=== PATIENT | male | born 1975 | race Caucasian/White ===

== ENCOUNTER 2018-12-28 23:30 | Emergency (ER) | payer BC, OTHER ==
[~2018-12-28] VITALS: Ht 185.4 cm; Wt 102.6 kg
[2018-12-28 23:36] VITALS: BP 122/73; PULSE 78; RESP 16; Ht 185.4 cm; Wt 102.6 kg
[2018-12-29] MEDS ORDERED: HYDR-4011 PO (00:11)
--- NOTE | 2018-12-29 00:12 | ERD ---
ER Documentation Chief Complaint Chief Complaint PT reports L groin pain increasing, pt has L inguinal hernia hx HPI 43 year old male presents to ED complaining of left groin pain x few years. He reports a hx of a hernia in his left groin which is the cause of his pain. He states the pain is 10/10, constant, hurting and burning. He reports leaning his body to the right side relieves some of the pain. He denies any radiation of the pain. He denies any fevers, chills. He has not taken any medication for his pain. He reports a previous hernia on his right groin that was repaired without any complications about 2 years ago. He is able to reduce the hernia but he states it keeps popping back out. He denies any other med hx ROS All systems reviewed and are negative except as per history of present illness. Medications Home Meds Active Scripts Hydrocodone/Acetaminophen ([place] 5-325 Tablet) 1 Each Tablet, 1 TAB PO Q6H PRN for PAIN, #10 TAB Prov:BREA MEEKS PA-C 12/29/18 Allergies Allergies: Coded Allergies: No Known Allergy (Unverified , 12/28/18) FmHx Family History: No diabetes Physical Exam Vitals Vital Signs Date Temp Pulse Resp B/P (MAP) Pulse Ox O2 O2 Flow FiO2 Time Delivery Rate 12/28/18 99.1 78 16 122/73 100 23:36 (89) Physical Exam Const: In acute pain Head: Atraumatic Eyes: Normal Conjunctiva, PERRLA ENT: Normal External Ears, Nose and Mouth. Neck: Full range of motion. Resp: Clear to auscultation bilaterally Cardio: Regular rate and rhythm, no murmurs Abd: soft abd. Large inguinal hernia present in left groin that is significantly tender. Not strangulated, not incarcerated. Easily reduced during physical exam Skin: No petechiae or rashes Back: No midline or flank tenderness Ext: No cyanosis, or edema Neur: Awake and alert Psych: Normal Mood and Affect Procedures/MDM ED COURSE: The patient was stable throughout ED course. I kept the patient informed of laboratory and diagnostic imaging results throughout the ED course. DIAGNOSTIC IMAGING: none indicated at this time PROCEDURES: manually reduced hernia without any complications MEDICATIONS GIVEN: [None.] MEDICAL DECISION MAKING: Patient is a 43 year old male presenting with an inguinal hernia on the left groin. Pt states it is very painful and is the most pain he has ever had. During physical exam, the hernia showed no signs of being incarcerated or strangulated. I was able to manually reduce the hernia however the patient insisted that he be kept overtime so a surgeon can see him in the morning. I reassured him that he did not need to be kept overnight and he asked to see a M.D. Dr. Herman came and explained to the patient that since the hernia is easily reduced, inpatient services was not needed at this time. We discussed a plan for him to go see Dr. Shauna Bright, a general surgeon, [facility] for an appointment. Pt was given [place] for pain management. I have low suspicion for incarcerated hernia, strangulated hernia, diverticulitis, SBE, toxic megacolon, ACS at this time. Vital signs were reviewed. Patient is afebrile. Patient was not hypoxic. Patient was hemodynamically stable. Patient was told to follow up with primary care and Dr. Bright for further care and management. PRESCRIPTION: [place] DISCHARGE: At this time, patient is stable for discharge and outpatient management. I have instructed the patient to follow-up with his/her primary care physician in 1-2 days. I have discussed with the patient the possibility of needing to see a specialist for further workup and imaging studies if symptoms persist. I have instructed the patient to promptly return to the ER for any new or worsening symptoms including increased pain, fever, nausea, vomiting, weakness or LOC. The patient expressed understanding of and agreement with this plan. All questions were answered. Home care instructions were provided. Disclaimer: Inadvertent spelling and grammatical errors are likely due to E HR/dictation software use and do not reflect on the overall quality of patient care. Also, please note that the electronic time recorded on this note does not necessarily reflect the actual time of the patient encounter. Departure Diagnosis: Primary Impression: Hernia Condition: Fair Patient Instructions: Hernia (Inguinal, Ventral, Umbilical) Referrals: SHAUNA BRIGHT MD [facility] YOU HAVE RECEIVED A MEDICAL SCREENING EXAM AND THE RESULTS INDICATE THAT YOU DO NOT HAVE A CONDITION THAT REQUIRES URGENT TREATMENT IN THE EMERGENCY DEPARTMENT. FURTHER EVALUATION AND TREATMENT OF YOUR CONDITION CAN WAIT UNTIL YOU ARE SEEN IN YOUR DOCTORS OFFICE WITHIN THE NEXT 1-2 DAYS. IT IS YOUR RESPONSIBILITY TO MAKE AN APPOINTMENT FOR FOLOW-UP CARE. IF YOU HAVE A PRIMARY DOCTOR --you should call your primary doctor and schedule an appointment IF YOU DO NOT HAVE A PRIMARY DOCTOR YOU CAN CALL OUR PHYSICIAN REFERRAL HOTLINE AT IF YOU CAN NOT AFFORD TO SEE A PHYSICIAN YOU CAN CHOSE FROM THE FOLLOWING [facility] [address] [facility] [address] [facility] [address] [facility] [address] [facility] [address] [facility] [facility] [address] [facility]. [facility] YOU HAVE RECEIVED A MEDICAL SCREENING EXAM AND THE RESULTS INDICATE THAT YOU DO NOT HAVE A CONDITION THAT REQUIRES URGENT TREATMENT IN THE EMERGENCY DEPARTMENT. FURTHER EVALUATION AND TREATMENT OF YOUR CONDITION CAN WAIT UNTIL YOU ARE SEEN IN YOUR DOCTORS OFFICE WITHIN THE NEXT 1-2 DAYS. IT IS YOUR RESPONSIBILITY TO MAKE AN APPOINTMENT FOR FOLOW-UP CARE. IF YOU HAVE A PRIMARY DOCTOR --you should call your primary doctor and schedule and appointment IF YOU DO NOT HAVE A PRIMARY DOCTOR YOU CAN CALL OUR PHYSICIAN REFERRAL HOTLINE AT . IF YOU CAN NOT AFFORD TO SEE A PHYSICIAN YOU CAN CHOSE FROM THE FOLLOWING [facility] INSTITUTIONS: [facility] [address] [place] [address] [facility] [address] [place] [address] [facility] [address] [place] [address] Additional Instructions: Call Dr. Shauna yung for an appointment Call your primary care doctor TOMORROW for an appointment during the next 1-2 days.See the doctor sooner or return here if your condition worsens before your appointment time. BREA MEEKS PA-C Dec 29, 2018 00:12
== END 2018-12-29 00:22 | disposition home or self-care (01) ==
LOC: FTE 23:30
DX: K46.9 Unspecified abdominal hernia without obstruction or gangrene (principal)
CPT/HCPCS: 99282